=== PATIENT | male | born 2005 | race Caucasian/White ===

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

== ENCOUNTER → 2024-10-22 | Outpatient (CLI) | payer BC ==
[~2024-10-22] MED LIST changes: +ALPR0.25 PO; +BACI1CAP PO; +CARA1TAB6 PO; +CEFD300CAP PO; +CYCL10TA20 PO; +DICL1PAT6 TOP; +DOCU8.6T PO; +DOXY-440 PO; +DULO1CAP6 PO; +DULO30CA9 PO; +LACT20EL PO; +LEXA5TAB13 PO; +LYRI300C PO; +MEGE1SUS8 PO; +MELO7.5T35 PO; +MILKSUS10 PO; +MIRA33506 PO; +NARC1SPR NARES; +OXYC-517 PO; +OXYC10TA12 PO; +OXYC15TA66 PO; +OXYC20TA40 PO; +PRED10TA2 PO; +PROT1TAB2 PO; +TRIA1OI80 TOP; +VENTAER INH
== END ==
LOC: M PAL 10:28
PROVIDERS: ATTEND Physician Assistant
DX: Z51.5 Encounter for palliative care (principal); M61.10 Myositis ossificans progressiva, unspecified site; G89.29 Other chronic pain; Z79.891 Long term (current) use of opiate analgesic

== ENCOUNTER → 2024-11-19 | Outpatient (CLI) | payer BC ==
[~2024-11-19] MED LIST changes: +BUSP5TA PO; +DOXY100T27 PO; +IPRA0.00 NEB; +OXYC-141 PO
== END ==
LOC: M PAL 11:05
PROVIDERS: ATTEND Physician Assistant
DX: Z51.5 Encounter for palliative care (principal); M61.10 Myositis ossificans progressiva, unspecified site; G89.18 Other acute postprocedural pain; Z79.891 Long term (current) use of opiate analgesic; Z79.899 Other long term (current) drug therapy

== ENCOUNTER → 2024-12-25 | Outpatient (CLI) | payer BC | LOC: M PAL 10:45 | PROVIDERS: ATTEND Physician Assistant | DX: Z51.5 Encounter for palliative care (principal); G89.4 Chronic pain syndrome; Z79.891 Long term (current) use of opiate analgesic; Z79.52 Long term (current) use of systemic steroids ==

== ENCOUNTER → 2025-02-24 | Outpatient (CLI) | payer BC ==
[~2025-02-24] MED LIST changes: -DOCU8.6T PO; +SENN-208 PO
== END ==
LOC: M PAL 10:15
PROVIDERS: ATTEND Physician Assistant
DX: Z51.5 Encounter for palliative care (principal); M61.10 Myositis ossificans progressiva, unspecified site; G89.18 Other acute postprocedural pain